=== PATIENT | male | born 1990 | race Caucasian/White ===

== ENCOUNTER 2018-05-27 15:35 | Emergency (ER) | payer OTHER ==
[2018-05-27] MEDS ORDERED: NA CHLORIDE 0.9% 1,000 ML ONE (16:30)
--- NOTE | 2018-05-27 16:48 | RAD REPORT ---
EXAM DESCRIPTION: RAD - Chest Single View - 05/27/2018 4:43 pm CLINICAL HISTORY: PALPITATIONS Chest pain. COMPARISON: No comparisons FINDINGS: Portable technique limits examination quality. The lungs are grossly clear. The heart is normal in size. No displaced fractures. IMPRESSION: No acute intrathoracic process suspected.
[2018-05-27 16:59] LABS: Absolute Lymphocytes (CBC) 0.5 K/uL (0.7-4.9); Absolute Monocytes 1.2 K/uL (0.1-1.3); Absolute Neutrophil 5.4 K/uL (1.8-8.0); Basophils % 0.6 % (0-1.3); Eosinophils % 1.2 % (0-4.4); Hematocrit 51.6 % (39.6-49.0); MPV 8.6 fL (7.6-11.3); Monocytes % 16.7 % (3.3-12.3); RBC Red Blood Cell Count 5.84 M/uL (4.33-5.43)
[2018-05-27 17:09] LABS: BUN Blood Urea Nitrogen 15 mg/dL (7-18); Bicarbonate 25 mmol/L (21-32); Glucose Level 87 mg/dL (74-106); Sodium Level 140 mmol/L (136-145); Troponin (Emerg Dept Use Only) < 0.02 ng/mL (0.0-0.045)
--- NOTE | 2018-05-27 17:23 | EDPHYS ---
Physician Documentation [facility] Name: Dennise Flynn Age: 27 yrs Sex: Male : 1990 Arrival Date: 05/27/2018 Time: 15:37 Bed 6 Private MD: out of town, doctor ED Physician Milton Wiseman HPI: 05/27 17:14 This 27 yrs old Male presents to ER via Wheelchair with complaints of Chest rn Pain. 17:14 The patient or guardian reports chest pain that is located primarily in the substernal rn area. The pain does not radiate. Associated signs and symptoms: Pertinent positives: lightheadedness, palpitations. The chest pain is described as aching. Duration: The patient or guardian reports a single episode, that is now resolved. Modifying factors: The symptoms are alleviated by nothing. the symptoms are aggravated by nothing. The patient has experienced a previous episode. Reports sent by pcp, woke up feeling sick this morning, low grade fever, ear pain, has hx of ear infections, seen at work clinic today, told heart rate was elevated, possibly 195 but unable to verify, given abx and prescriptions for heart rate, he called his pcp who told him to come to ER. Patient reports has happened to him once before, but no diagnosis. No lightheadedness/chest pain/sob/abd pain/vomiting/diarrhea currently. . 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 - Social history:: Smoking status: Patient/guardian denies using tobacco. - Ebola Screening: : No symptoms or risks identified at this time. - Family history:: not pertinent. - Hospitalizations: : No recent hospitalization is reported. ROS: 17:14 Constitutional: Negative for fever, chills, and weight loss, Eyes: Negative for injury, rn pain, redness, and discharge, Neck: Negative for injury, pain, and swelling, Cardiovascular: Negative for edema, Respiratory: Negative for shortness of breath, cough, wheezing, and pleuritic chest pain, Abdomen/GI: Negative for abdominal pain, nausea, vomiting, diarrhea, and constipation, MS/Extremity: Negative for injury and deformity, Skin: Negative for injury, rash, and discoloration, Neuro: Negative for headache, numbness, tingling, and seizure. Exam: 17:14 Constitutional: This is a well developed, well nourished patient who is awake, alert, rn and in no acute distress. Head/Face: Normocephalic, atraumatic. Cardiovascular: tachycardic, regular, no murmur Respiratory: Lungs have equal breath sounds bilaterally, clear to auscultation. No increased work of breathing, no retractions or nasal flaring. Abdomen/GI: soft, non-tender Skin: Warm, dry MS/ Extremity: Pulses equal, no cyanosis. Neurovascular intact. Full, normal range of motion. Equal circumference. Neuro: Awake and alert, GCS 15, oriented to person, place, time, and situation. Cranial nerves II-XII grossly intact. Motor strength 5/5 in all extremities. Sensory grossly intact. Vital Signs: 15:51 BP 129 / 72; Pulse 113; Resp 16; Temp 97.9; Pulse Ox 100% on R/A; Pain 5/10; hb 16:00 BP 122 / 85; Pulse 113; Resp 18; Pulse Ox 100% on R/A; hj 17:23 BP 125 / 84; Pulse 99; Resp 18; Pulse Ox 100% on R/A; hj MDM: 16:03 Patient medically screened. rn 17:14 Differential diagnosis: anxiety, coronary artery disease pericarditis, arrythmia, rn anxiety, stress, viral infection, dehydration. Data reviewed: vital signs, nurses notes, lab test result(s), EKG, radiologic studies, and as a result, I will discharge patient. Counseling: I had a detailed discussion with the patient and/or guardian regarding: the historical points, exam findings, and any diagnostic results supporting the discharge/admit diagnosis, lab results, radiology results, the need for outpatient follow up, to return to the emergency department if symptoms worsen or persist or if there are any questions or concerns that arise at home. Response to treatment: the patient's symptoms have markedly improved after treatment. Special discussion: I discussed with the patient/guardian in detail that at this point there is no indication for admission to the hospital. It is understood, however, that if the symptoms persist or worsen the patient needs to return immediately for re-evaluation. 17:14 ED course: Pt states his family member with similar symptoms, also plans on taking abx rn for his ear infection. Placed on holter monitor here, and return precautions given, will f/u with pcp. . 03/ 16:16 Order name: Basic Metabolic Panel; Complete Time: 17:14 rn 05/27 16:16 Order name: CBC with Diff; Complete Time: 17:14 rn 05/27 16:16 Order name: Magnesium; Complete Time: 17:14 rn 05/27 16:16 Order name: Troponin (emerg Dept Use Only); Complete Time: 17:14 rn 05/27 16:16 Order name: XRAY Chest (1 view); Complete Time: 16:55 rn 05/27 16:16 Order name: EKG; Complete Time: 16:17 rn 05/27 16:16 Order name: Cardiac monitoring; Complete Time: 16:16 rn 05/27 16:16 Order name: EKG - Nurse/Tech; Complete Time: 16:17 rn 05/27 16:16 Order name: IV Saline Lock; Complete Time: 16:17 rn 05/27 16:16 Order name: Labs collected and sent; Complete Time: 16:17 rn 05/27 16:16 Order name: O2 Per Protocol; Complete Time: 16:17 rn 05/27 16:16 Order name: O2 Sat Monitoring; Complete Time: 16:17 rn 05/27 16:45 Order name: Holter Monitor (ORDER); Complete Time: 16:46 bd Administered Medications: 16:20 Drug: NS 0.9% 1000 ml Route: IV; Rate: 1000 ml; Site: left forearm; 17:25 Follow up: IV Status: Infusion continued hj Disposition: 05/27/18 17:23 Discharged to Home. Impression: Dehydration, Tachycardia, unspecified. - Condition is Stable. - Discharge Instructions: Dehydration, Adult, Holter Monitoring, Paroxysmal Supraventricular Tachycardia. - Medication Reconciliation Form, Thank You Letter, Antibiotic Education, Prescription Opioid Use form. - Follow up: Flo Rizvi MD; When: As needed; Reason: Recheck today's complaints, Re-evaluation by your physician. - Problem is new. - Symptoms have improved. Signatures: Dispatcher [employer] EDMS Wiseman, MD MD fiorella Rose Henry, RN RN hj Baxter, Heather, RN RN hb Corrections: (The following items were deleted from the chart) 15:52 15:51 Home Meds: None; hb hb 15:52 15:51 PMHx: None; hb hb 15:52 15:51 Immunization history: Adult Immunizations up to date, hb hb 17:59 17:23 05/27/2018 17:23 Discharged to Home. Impression: Dehydration; Tachycardia, hj unspecified. Condition is Stable. Forms are Medication Reconciliation Form, Thank You Letter, Antibiotic Education, Prescription Opioid Use. Follow up: Flo Rizvi; When: As needed; Reason: Recheck today's complaints, Re-evaluation by your physician. Problem is new. Symptoms have improved. rn
--- NOTE | 2018-05-27 17:23 | ER ---
Nurse's Notes [facility] Name: Dennise Flynn Age: 27 yrs Sex: Male : 1990 Arrival Date: 05/27/2018 Time: 15:37 Bed 6 Private MD: out of town, doctor Diagnosis: Dehydration;Tachycardia, unspecified Presentation: 05/27 15:49 Presenting complaint: Sent by PCP for HR 194. Pt reports dizziness, body aches, and hb headache since this morning. 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 Transition of care: patient was not received from another setting of care. Onset of symptoms was May 27, 2018. Risk Assessment: Do you want to hurt yourself or someone else? Patient reports no desire to harm self or others. Care prior to arrival: None. 15:49 Method Of Arrival: Wheelchair hb 15:49 Acuity: GIO 3 hb 15:58 Initial Sepsis Screen: Does the patient meet any 2 criteria? No. Patient's initial hj sepsis screen is negative. Does the patient have a suspected source of infection? No. Patient's initial sepsis screen is negative. Triage Assessment: 15:58 General: Appears in no apparent distress. uncomfortable, Behavior is calm, cooperative, hj appropriate for age. Pain: Complains of pain in chest. Cardiovascular: Capillary refill < 3 seconds Patient's skin is warm and dry. 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 - Social history:: Smoking status: Patient/guardian denies using tobacco. - Ebola Screening: : No symptoms or risks identified at this time. - Family history:: not pertinent. - Hospitalizations: : No recent hospitalization is reported. Screenin:58 Abuse screen: Denies threats or abuse. Denies injuries from another. Nutritional hj screening: No deficits noted. Tuberculosis screening: No symptoms or risk factors identified. Fall Risk None identified. Assessment: 15:59 Pain: Pain does not radiate. Pain began 1 day ago. hj 16:01 General: Appears in no apparent distress. uncomfortable, Behavior is calm, cooperative, hj appropriate for age. Neuro: Level of Consciousness is awake, alert, obeys commands, Oriented to person, place, time, situation, Appropriate for age. Cardiovascular: Capillary refill < 3 seconds Patient's skin is warm and dry. Respiratory: Airway is patent Respiratory effort is even, unlabored, Respiratory pattern is regular, symmetrical. GI: No signs and/or symptoms were reported involving the gastrointestinal system. : No signs and/or symptoms were reported regarding the genitourinary system. EENT: No signs and/or symptoms were reported regarding the EENT system. Derm: No signs and/or symptoms reported regarding the dermatologic system. Musculoskeletal: No signs and/or symptoms reported regarding the musculoskeletal system. 17:23 Reassessment: Patient and/or family updated on plan of care and expected duration. Pain hj level reassessed. Patient is alert, oriented x 3, equal unlabored respirations, skin warm/dry/pink. pt for Holter monitor placement;. 17:24 Reassessment: Patient and/or family updated on plan of care and expected duration. Pain hj level reassessed. Patient is alert, oriented x 3, equal unlabored respirations, skin warm/dry/pink. pt for D/C;. Vital Signs: 15:51 BP 129 / 72; Pulse 113; Resp 16; Temp 97.9; Pulse Ox 100% on R/A; Pain 5/10; hb 16:00 BP 122 / 85; Pulse 113; Resp 18; Pulse Ox 100% on R/A; hj 17:23 BP 125 / 84; Pulse 99; Resp 18; Pulse Ox 100% on R/A; hj ED Course: 15:37 Patient arrived in ED. dl4 15:38 out of town, doctor is Private Physician. dl4 15:51 Triage completed. hb 15:52 Arm band placed on left wrist. hb 15:53 Ankur Go, SEGUNDO is Primary Nurse. hj 15:59 Patient has correct armband on for positive identification. Placed in gown. Bed in low hj position. Call light in reach. Side rails up X 1. hospital monitor on. Pulse ox on. NIBP on. 15:59 Patient maintains SpO2 saturation greater than 95% on room air. hj 16:03 Milton Wiseman MD is Attending Physician. rn 16:05 EKG done, by anaesthetic technician. reviewed by Milton Wiseman MD. 3 16:10 Inserted saline lock: 20 gauge in left forearm, using aseptic technique. Missed pc1 attempt(s): 20 gauge in right antecubital area. Bleeding controlled, band aid applied, catheter tip intact. 16:44 XRAY Chest (1 view) In Process Unspecified. EDMS 17:19 HOLTER MONITOR WAS PLACED, INSTRUCTIONS WERE GIVEN. 3 17:22 Flo Rizvi MD is Referral Physician. rn 17:57 No provider procedures requiring assistance completed. IV discontinued, intact, hj bleeding controlled, No redness/swelling at site. Pressure dressing applied. Administered Medications: 16:20 Drug: NS 0.9% 1000 ml Route: IV; Rate: 1000 ml; Site: left forearm; hj 17:25 Follow up: IV Status: Infusion continued hj Outcome: 17:23 Discharge ordered by MD. rn 17:57 Attestation : i agree with the assessment and notes of PC, SN. hj 17:57 Discharged to home ambulatory, with family. 17:57 Condition: stable 17:57 Discharge instructions given to patient, family, Instructed on discharge instructions, follow up and referral plans. Demonstrated understanding of instructions, follow-up care. 17:59 Patient left the ED. hj Signatures: Dispatcher [employer] EDMS Milton Wiseman MD MD rn Joaquin, Henry RN Reyna Kaplan RN RN hb Montes, Shakira sm3 Fabricio Poole dl4 Faisal Roman pc1 Corrections: (The following items were deleted from the chart) 15:52 15:51 Home Meds: None; hb hb 15:52 15:51 PMHx: None; hb hb 15:52 15:51 Immunization history: Adult Immunizations up to date, hb hb
--- NOTE | 2018-05-29 10:30 | EKG ---
Test Date: 2018-05-27 Test Time: 15:58:15 Bar Porter: VAL MEASUREMENT RESULTS: Intervals: Rate: 116 VT: 130 QRSD: 82 QT: 292 QTc: 405 [place]: P: 62 VT: 130 QRS: 64 T: 45 INTERPRETIVE STATEMENTS: Sinus tachycardia Otherwise normal ECG No previous ECG available for comparison Electronically Signed On 05-28-18 08:09:59 CDT by Lebron Gonzalez
--- NOTE | 2018-06-02 08:18 | HM ---
Indications : Chest pain Diary Notations : Referring MD : Milton Wiseman Medications: Reading MD : Lebron Gonzalez : Summary Report Test Date : 05/27/2018 Start Time : 4:55:20 pm Total Beats : [id number] Hours Analyzed : 24:33:40 Unknown Beats : 0 Scan Date : 05/29/2018 Artifact : 2:25:04 Other Beats : 0 Percent AFIB : 0 Rate Dependent Events Heart Rates Min : 84 BPM at 2:28:00 am Bradycardia Runs: 0 Pauses : 0 Max : 150 BPM at 8:27:00 am Longest : 0 beats at 0 Longest : 0 secs Avg : 102 BPM Min rate : 0 BPM at 0 at 0 Ventricular Events Supraventricular Events Total Beats : 0 Couplets : 0 Total Beats : 1 Couplets : 0 Triplets : 0 Bigeminy Runs : 0 VTach Runs : 0 SVTach Runs : 0 Longest : 0 beats at Longest : 0 beats at Max Rate ; 0 BPM 0 Max Rate : 0 BPM at 0 Impressions and Findings Sinus rhythm with one premature atrial complexes. No ventricular tachycardia or supraventricular tachycardia. No pauses. No ischemia.
== END 2018-05-27 17:59 | disposition home or self-care (01) ==
LOC: ER 15:35
DX: E86.0 Dehydration (principal); R00.0 Tachycardia, unspecified; R07.9 Chest pain, unspecified; I10 Essential (primary) hypertension
CPT/HCPCS: 36415; 71045; 80048; 83735; 84484; 85025; 93005; 93225; 93226; 96360; 99285; J7030